=== PATIENT | female | born 1945 | race Caucasian/White ===

== ENCOUNTER 2018-08-17 07:45 | Outpatient (CLI) | payer MEDICARE, OTHER, SELFPAY ==
--- NOTE | 2018-08-17 07:55 | DI.CT_ITS ---
SYMPTOM/DIAGNOSIS: DEGENERATIVE DISC DISEASE LUMBAR SPINE, M51.[address]: The exam is interpreted without benefit of prior exams. The patient has hardware in the lumbar spine with rods extending from the cervical level into the upper sacrum. The hardware creates significant artifact. There is no evidence of fracture of the hardware or acute bony fracture. There is fusion through the L 1-2 through L 4-5 discs. There is lucency and vacuum phenomenon through the L 5-S 1 disc. There is no evidence of central canal stenosis. No aggressive bony lesions are identified. IMPRESSION: Spinal rods and disc fusion. No acute abnormality is visible.
== END 2018-08-17 08:05 ==
PROVIDERS: PCP Nurse Practitioner Family; Visit Provider Nurse Practitioner Family
DX: Z98.1 Arthrodesis status (principal); M51.36 Other intervertebral disc degeneration, lumbar region
CPT/HCPCS: 72131

== ENCOUNTER 2018-09-27 10:16 | Outpatient (CLI) | payer MEDICARE, OTHER, SELFPAY ==
--- NOTE | 2018-09-27 10:10 | DI.RAD_ITS ---
SYMPTOM/DIAGNOSIS: LEFT HIP PAIN LEFT HIP: 09/27 Two views were obtained. There are Mott rods of the lower lumbar spine. There is deformity of the pubic bone on the right, question of old injury Please correlate with history. There is mild loss of the cartilaginous joint spaces of both hips. Soft tissue calcifications are noted adjacent to the greater trochanter of the right femur. CONCLUSION: Left pubic bone deformity, question old injury, Additional evaluation with CT or MRI could be obtained if there is no history of injury to exclude neoplastic process. 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
== END 2018-09-27 10:36 ==
PROVIDERS: PCP Nurse Practitioner Family; Referring Provider Nurse Practitioner Family; Visit Provider Orthopaedic Surgery
DX: M25.552 Pain in left hip (principal); M16.0 Bilateral primary osteoarthritis of hip; M95.5 Acquired deformity of pelvis; I10 Essential (primary) hypertension
CPT/HCPCS: 99203; 99213; 73502

== ENCOUNTER 2018-10-03 00:41 | Outpatient (CLI) | payer MEDICARE, OTHER, SELFPAY ==
--- NOTE | 2018-10-03 14:28 | DI.MRI_ITS ---
SYMPTOMS/DIAGNOSIS: LT HIP PAIN MRI OF THE LEFT HIP AND PELVIS: Comparison is made with CT of the spine dated [id number] and plain films of the pelvis and left hip dated [id number]. The plain films showed subacute fracture in the left pubis. This is visible by MRI. There are also subacute fractures of both sacral ala. A chronic deformity is seen in the right ilium and no femoral fractures are seen. There are no hip joint effusions. There is some edema around the left pubic fracture but no evidence of a localized hematoma or drainable fluid collection. The urinary bladder and uterus are unremarkable. IMPRESSION: Subacute fractures of the left pubis and bilateral sacral ala.
--- NOTE | 2018-10-03 16:30 | DI.VRAD_ITS ---
EXAM: MR Left Lower Extremity Without Contrast. Hip EXAM DATE/TIME: 10/03/2018 2:21 PM CLINICAL HISTORY: 72 years old, female; Patient HX: Left hip pain. TECHNIQUE: Imaging protocol: MR of the Left lower extremity without intravenous contrast. Exam focused on the hip. COMPARISON: CR XR hip LT complete AP pelvis 09/27/2018 10:21 AM COMPARISON MORE: CT lumbar spine wo 08/17/2018 8:02:44 AM FINDINGS: Labrum: Apparent diffuse tear of the left acetabular labrum. Cartilage: Not optimally evaluated due to motion artifact. Fluid: Trace effusion of the pubic symphyseal joint. Bones/joints: Abnormal hypointense T1 and hyperintense T2 marrow signal within the left pubic body, favored to be secondary to a mildly displaced subacute fracture. There appears to be up to 7 mm of displacement. Edema-like marrow signal extends into the anterior aspect of the left superior pubic ramus and the anterior aspect of the left inferior pubic ramus. Apparent mild edema-like marrow signal within the right anterior acetabular column is favored to be artifactual, related to blooming artifact. No dislocation. Minimal bilateral hip joint DJD. Lumbosacral spinal fixation hardware. Edema-like marrow signal within the bilateral sacral ala. There appear to be nondisplaced fractures of the bilateral sacral ala. Chronic deformity of the medial aspect of the right iliac bone. No evidence of femoral head osteonecrosis. Muscles: Severe atrophy of the left gluteus medius muscle. Mild atrophy of the left gluteus minimus muscle. Edema within the medial left adductor muscles. TENDONS: Extensors: Low-grade partial-thickness tear of the right hamstring tendon origin. Flexors: Unremarkable. No tear. Abductors: Unremarkable. No tear. Adductors: Unremarkable. No tear. Rotators: Unremarkable. No tear. IMPRESSION: 1. Findings are favored to represent a subacute mildly displaced fracture of the left pubic body. 2. Contusion of the left adductor muscles. 3. Nondisplaced fractures of the bilateral sacral ala, favored to be subacute in nature. These fractures were present on the recent comparison lumbar spine CT, on which they appear acute to subacute in nature. 4. Low-grade partial-thickness tear of the right hamstring tendon origin. 5. Apparent diffuse left acetabular labral tear. Dictated and Authenticated by: Jeri Melgar MD. Ordering:YOLETTE English MD
== END 2018-10-03 01:01 ==
PROVIDERS: PCP Nurse Practitioner Family; Visit Provider Orthopaedic Surgery
DX: M25.552 Pain in left hip (principal); S32.502A Unspecified fracture of left pubis, initial encounter for closed fracture; S32.10XA Unspecified fracture of sacrum, initial encounter for closed fracture
CPT/HCPCS: 73721

== ENCOUNTER → 2018-10-09 09:49 | Outpatient (BNVA) | payer MEDICARE, OTHER, SELFPAY | PROVIDERS: PCP Nurse Practitioner Family; Referring Provider Nurse Practitioner Family; Visit Provider Orthopaedic Surgery | DX: M25.552 Pain in left hip (principal); I10 Essential (primary) hypertension; M53.3 Sacrococcygeal disorders, not elsewhere classified | CPT/HCPCS: 99213 ==

== ENCOUNTER 2018-10-12 01:14 | Outpatient (CLI) | payer MEDICARE, OTHER, SELFPAY ==
--- NOTE | 2018-10-12 09:08 | DI.NM_ITS ---
SYMPTOMS/DIAGNOSIS: LEFT GROIN PAIN, MRI NOT DIAGNOSTIC WHOLE BODY BONE SCAN: Comparison CT scan is 10/12/18. Comparison MRI is 10/03/18. Comparison x-ray is 09/27/18. The patient received 24.6 mCi of technetium 99m MDP and whole body imaging was performed. There is normal radiotracer activity in the kidneys and collecting system. There is increased radiotracer uptake seen in the sacral ala bilaterally and the left pubic bone consistent with the patient's subacute fractures. There is increased radiotracer uptake seen in the shoulders, wrists and feet bilaterally. This may be degenerative in nature. Photopenic area is seen in the right knee suggesting right knee replacement. Increased radiotracer uptake is seen in the left knee, likely degenerative. IMPRESSION: Increased radiotracer uptake in the sacral ala bilaterally and the left pubic bone consistent with the patent's known subacute fractures.
--- NOTE | 2018-10-12 09:50 | DI.CT_ITS ---
SYMPTOM/DIAGNOSIS: LT GROIN PAIN, MRI NOT DIAGNOSTIC PELVIC CT: Multiple contiguous axial images of the pelvis were obtained. Sagittal and coronal reformatted images were evaluated on the [employer] work station. Comparison xray is 09/27/18. Comparison MRI is 10/03/18. There are bilateral sacral ala fractures. The fracture lines are visualized. There is some sclerosis about the fracture sites. The fractures appear nondisplaced. There is again seen a fracture involving the left pubic bone and some callous about the formation site consistent with a subacute nature. The fracture appears comminuted. No new fractures or dislocations are appreciated. The hip joints show mild degenerative change but are otherwise intact. There is moderate fatty atrophy of the left gluteal muscles. There are post surgical and degenerative changes seen in the lower lumbar spine. IMPRESSION: 1. Stable subacute fractures involving the left pubic bone and both sacral ala. 2. No acute abnormality.
== END 2018-10-12 01:34 ==
PROVIDERS: PCP Nurse Practitioner Family; Visit Provider Orthopaedic Surgery
DX: R10.32 Left lower quadrant pain (principal); S32.10XD Unspecified fracture of sacrum, subsequent encounter for fracture with routine healing; S32.502D Unspecified fracture of left pubis, subsequent encounter for fracture with routine healing
CPT/HCPCS: 78306; 72192

== ENCOUNTER → 2018-10-17 10:23 | Outpatient (BNVA) | payer MEDICARE, OTHER, SELFPAY | PROVIDERS: PCP Nurse Practitioner Family; Referring Provider Nurse Practitioner Family; Visit Provider Orthopaedic Surgery | DX: M84.350A Stress fracture, pelvis, initial encounter for fracture (principal); I10 Essential (primary) hypertension | CPT/HCPCS: 99213 ==